=== PATIENT | female | born 1980 | race Hispanic/Latino ===

== ENCOUNTER 2020-04-11 14:22 | Emergency (ER) | payer SELFPAY ==
[2020-04-11 15:48] LABS: Urine Blood 2+ (NEG); Urine Glucose NEGATIVE (NEG); Urine Protein TRACE (NEG); Urine Specific Gravity 1.025 (1.005-1.030); Urine pH 8.5 (5.0-7.0)
--- NOTE | 2020-04-11 16:35 | RAD REPORT ---
EXAM DESCRIPTION: US - Transvaginal OB - 04/11/2020 4:23 pm CLINICAL HISTORY: VAGINAL BLEEDING Pelvic pain COMPARISON: No comparisons FINDINGS: A single gestational sac is seen within the uterus. The shape of the sac is within normal limits for gestational age. Within the sac is a single pole with crown-rump length of 18 mm, co rrelating to estimated gestational age of 8 weeks 0 days. Estimated date of delivery is 11/21/2020. Heart rate is 157 BPM.. The placenta is not yet developed due to early gestational age. Small 10 mm inferiorly located subcho rionic bleed. The maternal adnexa and ovaries are within normal limits. IMPRESSION: Single live early intrauterine gestation with estimated gestational age of 8 weeks 0 day s, MAMIE 11/21/2020. 10 mm inferiorly located subchorionic bleed.
[2020-04-11 16:44] LABS: Absolute Lymphocytes (CBC) 3.1 K/uL (0.7-4.9); Basophils % 0.9 % (0-1.3); Hematocrit 28.1 % (36.0-45.0); Lymphocytes % 32.1 % (15.3-44.8); MPV 8.6 fL (7.6-11.3); RBC Red Blood Cell Count 3.79 M/uL (3.86-4.86)
[2020-04-11 17:19] LABS: BUN Blood Urea Nitrogen 8 mg/dL (7-18); Bicarbonate 22 mmol/L (21-32); Glucose Level 85 mg/dL (74-106); HCG, Quantitative 185494 mIU/mL (1-3); Potassium 3.4 mmol/L (3.5-5.1); Sodium Level 139 mmol/L (136-145)
[2020-04-11] MEDS ORDERED: ONDANSETRON 4 MG/2 ML VIAL ONE (18:11)
[2020-04-11] MEDS ORDERED: NA CHLORIDE 0.9% 1,000 ML ONE (18:11)
--- NOTE | 2020-04-11 18:11 | ER ---
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 + . + N/V. ll1 No fever. Blood oozing down both legs when called into triage. Coronavirus screen: Client denies travel out of the [place] in the last 14 days. At this time, the client does not indicate any symptoms associated with coronavirus-19. Ebola Screen: Patient denies travel to an Ebola-affected area in the 21 days before illness onset. Initial Sepsis Screen: Does the patient meet any 2 criteria? No. Patient's initial sepsis screen is negative. Risk Assessment: Do you want to hurt yourself or someone else? Patient reports no desire to harm self or others. Onset of symptoms was April 11, 2020. 14:41 Method Of Arrival: Ambulatory ll1 14:41 Acuity: RADHA 2 ll1 16:05 Initial Sepsis Screen: Does the patient have a suspected source of infection? No. ph Patient's initial sepsis screen is negative. RECOVERY ADVOCATE: 15:02 6, Full Term 3, 2, Living 3 cp Historical: - Allergies: 14:43 No Known Allergies; ll1 - PSHx: 14:43 ; ll1 - Immunization history:: Flu vaccine status is unknown. - Social history:: Smoking status: Patient denies any tobacco usage or history of. Screenin:50 Abuse screen: Denies threats or abuse. Denies injuries from another. Nutritional ph screening: No deficits noted. Tuberculosis screening: No symptoms or risk factors identified. Fall Risk None identified. Assessment: 15:00 General: Appears in no apparent distress. comfortable, Behavior is calm, cooperative, ph appropriate for age, Denies fever, feeling ill. Pain: Complains of pain in suprapubic area. Neuro: Level of Consciousness is awake, alert, obeys commands, Oriented to person, place, time, situation, Denies weakness dizziness. Cardiovascular: Capillary refill < 3 seconds in bilateral Patient's skin is warm and dry. Respiratory: Airway is patent Respiratory effort is even, unlabored. GI: Reports lower abdominal pain, nausea, vomiting. : Reports cramping, vaginal bleeding that is with clots. Derm: Skin is intact, is healthy with good turgor, Skin is pink, warm \T\ dry. 16:05 Reassessment: Pt remains in US. ph 17:16 Reassessment: Patient appears in no apparent distress at this time. Patient and/or em family updated on plan of care and expected duration. Pain level reassessed. Patient is alert, oriented x 3, equal unlabored respirations, skin warm/dry/pink. 18:11 Reassessment: pt will be D/C'd after completion of IV NS bolus. em 19:12 Reassessment: Patient appears in no apparent distress at this time. Patient and/or jb4 family updated on plan of care and expected duration. Pain level reassessed. Patient is alert, oriented x 3, equal unlabored respirations, skin warm/dry/pink. PT verbalized understanding of d/c and follow up instructions. Denies questions or concerns. Ambulated out of ED with steady gait. Vital Signs: 14:41 BP 109 / 52; Pulse 77; Resp 18; Temp 98.4; Pulse Ox 98% ; Pain 7/10; ll1 16:53 BP 112 / 60; Pulse 71; Resp 18; Pulse Ox 99% on R/A; ph 17:38 BP 96 / 58; Pulse 61; Resp 18; Pulse Ox 99% on R/A; em 19:12 BP 109 / 69; Pulse 54; Resp 16; Pulse Ox 99% on R/A; jb4 ED Course: 14:25 Patient arrived in ED. mr 14:37 Urbano Davenport PA is PHCP. cp 14:37 Carmine Javier MD is Attending Physician. cp 14:42 Triage completed. ll1 14:43 Arm band placed on Patient placed in an exam room, on a stretcher. ll1 14:49 Yessica Cole, RN is Primary Nurse. ph 14:51 Patient has correct armband on for positive identification. Placed in gown. Bed in low ph position. Call light in reach. Side rails up X2. Pulse ox on. NIBP on. Door closed. Noise minimized. Warm blanket given. 15:03 Radiology exam delayed due to lab results not completed at this time. (HCG) aa4 test not completed at this time. 16:15 Inserted saline lock: 20 gauge in left antecubital area, using aseptic technique. Blood ph collected. 16:22 US Transvaginal Ob In Process Unspecified. EDMS 16:54 No provider procedures requiring assistance completed. ph 19:14 IV discontinued, intact, bleeding controlled, No redness/swelling at site. Pressure jb4 dressing applied. Administered Medications: 17:57 CANCELLED (Physician Discretion): NS 0.9% 500 ml IV at bolus once cp 18:03 Drug: Zofran (Ondansetron) 4 mg Route: IVP; Site: left antecubital; em 18:03 Drug: NS 0.9% 1000 ml Route: IV; Rate: 1 bolus; Site: left antecubital; em 18:52 Drug: Potassium Effervescent Tablet 25 mEq Route: PO; ph Outcome: 18:10 Discharge ordered by MD. cp 19:14 Discharged to home ambulatory. jb4 19:14 Condition: stable 19:14 Discharge instructions given to patient, Instructed on discharge instructions, follow up and referral plans. medication usage, Demonstrated understanding of instructions, follow-up care, medications, Prescriptions given X 2. 19:15 Patient left the ED. jb4 Signatures: Dispatcher [employer] [facility] LoyolaSadia Edgar, RN RN Lisa Morin4 Yessica Cole RN Urbano Heller ph, PA PA cp Bryson, James, RN RN jb4 Edis Ennis RN RN ll1
--- NOTE | 2020-04-11 18:11 | EDPHYS ---
Physician Documentation [facility] Name: Anne lAlen Age: 40 yrs Sex: Female : 1980 Arrival Date: 04/11/2020 Time: 14:25 Bed 4 Private MD: ED Physician Cramine Javier HPI: 04/11 15:02 This 40 yrs old Female presents to ER via Ambulatory with complaints of cp Vaginal Bleeding, + Preg <12wks. 15:02 The patient presents to the emergency department with abdominal pain, of the right cp lower quadrant and left lower quadrant, vaginal bleeding, that is moderate, with no clots. The estimated gestational age is 8 weeks. course: care: at a clinic, Ultrasound: the patient has not had an ultrasound. Previous pregnancies: in previous pregnancies patient has had vaginal delivery, no complications. Associated signs and symptoms: Pertinent negatives: dysuria, fever. 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 - Social history:: Smoking status: Patient denies any tobacco usage or history of. ROS: 15:03 Constitutional: Negative for body aches, chills, fever, poor PO intake. cp 15:03 Cardiovascular: Negative for chest pain. 15:03 Respiratory: Negative for cough, shortness of breath, wheezing. 15:03 Abdomen/GI: Positive for abdominal pain, Negative for diarrhea, constipation, active vomiting. 15:03 Back: Negative for pain at rest, pain with movement, radiated pain. 15:03 : Positive for vaginal bleeding, Negative for urinary symptoms. 15:03 Skin: Negative for rash. 15:03 Neuro: Negative for altered mental status, headache, weakness. 15:03 All other systems are negative. Exam: 15:05 Head/Face: Normocephalic, atraumatic. cp 15:05 Constitutional: The patient appears in no acute distress, alert, awake, non-toxic, well developed, well nourished. 15:05 Eyes: Periorbital structures: appear normal, Conjunctiva: normal, no exudate, no injection, Lids and lashes: appear normal, bilaterally. 15:05 ENT: External ear(s): are unremarkable, Nose: is normal, Mouth: Lips: moist, Oral mucosa: moist, Posterior pharynx: Airway: no evidence of obstruction, patent. 15:05 Chest/axilla: Inspection: normal, Palpation: is normal, no crepitus, no tenderness. 15:05 Cardiovascular: Rate: normal, Rhythm: regular. 15:05 Respiratory: the patient does not display signs of respiratory distress, Respirations: cp normal, no use of accessory muscles. 15:05 Abdomen/GI: Inspection: abdomen appears normal, Bowel sounds: active, all quadrants, Palpation: abdomen is soft and non-tender, in all quadrants, rebound tenderness, is not appreciated, voluntary guarding, is not appreciated, involuntary guarding, is not appreciated. 15:05 Back: pain, is absent. Vital Signs: 14:41 BP 109 / 52; Pulse 77; Resp 18; Temp 98.4; Pulse Ox 98% ; Pain 7/10; ll1 16:53 BP 112 / 60; Pulse 71; Resp 18; Pulse Ox 99% on R/A; ph 17:38 BP 96 / 58; Pulse 61; Resp 18; Pulse Ox 99% on R/A; em 19:12 BP 109 / 69; Pulse 54; Resp 16; Pulse Ox 99% on R/A; jb4 MDM: 14:44 Patient medically screened. cp 15:15 Differential diagnosis: STD, threatened Ab, inevitable Ab, complete Ab, ectopic cp . 18:05 Data reviewed: vital signs, nurses notes, lab test result(s), radiologic studies, cp ultrasound. 18:05 Counseling: I had a detailed discussion with the patient and/or guardian regarding: the cp historical points, exam findings, and any diagnostic results supporting the discharge/admit diagnosis, lab results, radiology results, the need for outpatient follow up, an OB/Gyne specialist, to return to the emergency department if symptoms worsen or persist or if there are any questions or concerns that arise at home. Response to treatment: the patient's symptoms have mildly improved after treatment, and as a result, I will discharge patient. 04/11 14:44 Order name: Quantitative Hcg; Complete Time: 17:27 cp 04/11 17:27 Interpretation: HCGQ 521440; Reviewed. 04/11 14:44 Order name: Abo/rh Typing; Complete Time: 17:47 cp 04/11 14:44 Order name: Basic Metabolic Panel; Complete Time: 17:27 cp 04/11 17:28 Interpretation: Normal except: K 3.4; CL 108; CRE 0.53; CA 8.3. cp 04/11 14:44 Order name: CBC with Diff; Complete Time: 17:12 cp 04/11 17:12 Interpretation: Normal except: RBC 3.79; HGB 9.3; HCT 28.1; MCV 74.3; MCH 24.5; RDW cp 17.0. 10 15:20 Order name: Urine Dipstick--Ancillary (enter results); Complete Time: 16:02 bd 04/11 16:02 Interpretation: Normal except: UBLD 2+; UPH 8.5. cp 04/11 15:20 Order name: Urine --Ancillary (enter results); Complete Time: 16:02 bd 04/11 16:02 Interpretation: Reviewed. cp 04/11 14:44 Order name: Urine Test (obtain specimen); Complete Time: 15:17 cp 04/11 14:44 Order name: IV Saline Lock; Complete Time: 16:38 cp 04/11 14:44 Order name: Labs collected and sent; Complete Time: 16:38 cp 04/11 14:49 Order name: US Transvaginal Ob; Complete Time: 16:45 cp 04/11 16:46 Interpretation: Report reviewed. cp 04/11 14:44 Order name: NPO; Complete Time: 16:38 cp 04/11 14:44 Order name: Urine Dipstick-Ancillary (obtain specimen); Complete Time: 15:17 cp Administered Medications: 17:57 CANCELLED (Physician Discretion): NS 0.9% 500 ml IV at bolus once cp 18:03 Drug: Zofran (Ondansetron) 4 mg Route: IVP; Site: left antecubital; em 18:03 Drug: NS 0.9% 1000 ml Route: IV; Rate: 1 bolus; Site: left antecubital; em 18:52 Drug: Potassium Effervescent Tablet 25 mEq Route: PO; ph Disposition: 18:30 Chart complete. cp 04/12 08:04 Co-signature as Attending Physician, Carmine Javier MD. rn Disposition: 04/11/20 18:10 Discharged to Home. Impression: Threatened , Anemia complicating , first trimester. - Condition is Stable. - Discharge Instructions: and Anemia, Threatened Miscarriage, Vaginal Bleeding During , First Trimester, Pelvic Rest. - Prescriptions for Vitamin 27- 0.8 mg Oral Tablet - take 1 tablet by ORAL route once daily; 60 tablet. promethazine 25 mg Oral Tablet - take 1 tablet by ORAL route every 6 hours As needed; 20 tablet. - Medication Reconciliation Form, Thank You Letter, Antibiotic Education, Prescription Opioid Use form. - Follow up: Private Physician; When: 2 - 3 days; Reason: Recheck today's complaints. - Problem is new. - Symptoms have improved. Signatures: Dispatcher [employer] Valdo Collado, RN RN Carmine Henry MD MD rn Hall, Patricia, RN RN ph Page, Corey, PA PA cp Bryson, James, RN RN jb4 Edis Ennis RN RN ll1 Corrections: (The following items were deleted from the chart) 04/11 17:28 17:28 Normal except: K 3.4; CL 108; CRE 0.53. cp cp 17:57 17:57 NS 0.9% 500 ml IV at bolus once ordered. cp cp 19:15 18:10 04/11/2020 18:10 Discharged to Home. Impression: Threatened ; Anemia jb4 complicating , first trimester. Condition is Stable. Forms are Medication Reconciliation Form, Thank You Letter, Antibiotic Education, Prescription Opioid Use. Follow up: Private Physician; When: 2 - 3 days; Reason: Recheck today's complaints. Problem is new. Symptoms have improved. cp
[2020-04-11 21:04] VITALS: TEMP 98.4
[2020-04-11 21:06] VITALS: O2SAT 99
[2020-04-11 21:09] VITALS: BP 109/69
== END 2020-04-11 19:15 | disposition home or self-care (01) ==
LOC: ER 14:22
DX: O20.0 Threatened abortion (principal); O99.011 Anemia complicating pregnancy, first trimester; Z3A.08 8 weeks gestation of pregnancy
CPT/HCPCS: 36415; 76817; 80048; 81003; 81025; 84702; 85025; 86900; 86901; 96374; 99284; J2405; J7030

== ENCOUNTER 2020-07-19 17:25 | Emergency (ER) | payer OTHER, SELFPAY ==
[2020-07-19] MEDS ORDERED: ACETAMINOPHEN 500 MG TAB ONE (18:18)
[2020-07-19 18:35] LABS: Urine Specific Gravity 1.025 (1.005-1.030)
[2020-07-19 18:35] LABS: Urine Blood TRACE (NEG); Urine Glucose NEGATIVE (NEG); Urine Protein 1+ (NEG); Urine Specific Gravity 1.025 (1.005-1.030)
[2020-07-19 19:13] LABS: SARS-COV-2 RT PCR POSITIVE (NEGATIVE)
--- NOTE | 2020-07-19 19:15 | EDPHYS ---
Physician Documentation [facility] Name: Anne Bran Age: 40 yrs Sex: Female : 1980 Arrival Date: 07/19/2020 Time: 17:27 Bed External Waiting Private MD: ED Physician Urbano Rader HPI: 07/19 19:02 This 40 yrs old Female presents to ER via Ambulatory with complaints of kb Headache. 19:02 The patient or guardian reports flu symptoms, myalgias, headache. Onset: The kb symptoms/episode began/occurred this morning. Severity of symptoms: At their worst the symptoms were mild, moderate, in the emergency department the symptoms are unchanged. Modifying factors: The symptoms are alleviated by nothing, the symptoms are aggravated by nothing. Associated signs and symptoms: The patient has no apparent associated signs or symptoms. The patient has not experienced similar symptoms in the past. The patient has not recently seen a physician. 19:03 Pt's 3 children have similar symptoms that started today as well. kb Historical: - Allergies: 17:41 No Known Allergies; ss - Home Meds: 17:41 None [Active]; ss - PMHx: 17:41 None; ss - PSHx: 17:41 ; ss - Immunization history:: Adult Immunizations not up to date. - Social history:: Smoking status: Patient denies any tobacco usage or history of. ROS: 19:01 ENT: Negative for injury, pain, and discharge, Neck: Negative for injury, pain, and kb swelling, Cardiovascular: Negative for chest pain, palpitations, and edema, Respiratory: Negative for shortness of breath, cough, wheezing, and pleuritic chest pain, Abdomen/GI: Negative for abdominal pain, nausea, vomiting, diarrhea, and constipation, Back: Negative for injury and pain, MS/Extremity: Negative for injury and deformity, Skin: Negative for injury, rash, and discoloration. 19:01 Constitutional: Positive for body aches, malaise. 19:01 Neuro: Positive for headache. Exam: 19:01 Constitutional: This is a well developed, well nourished patient who is awake, alert, kb and in no acute distress. Head/Face: Normocephalic, atraumatic. Chest/axilla: Normal chest wall appearance and motion. Nontender with no deformity. No lesions are appreciated. Cardiovascular: Regular rate and rhythm with a normal S1 and S2. No gallops, murmurs, or rubs. Normal PMI, no JVD. No pulse deficits. Respiratory: Lungs have equal breath sounds bilaterally, clear to auscultation and percussion. No rales, rhonchi or wheezes noted. No increased work of breathing, no retractions or nasal flaring. Abdomen/GI: Soft, non-tender, with normal bowel sounds. No distension or tympany. No guarding or rebound. No evidence of tenderness throughout. Skin: Warm, dry with normal turgor. Normal color with no rashes, no lesions, and no evidence of cellulitis. MS/ Extremity: Pulses equal, no cyanosis. Neurovascular intact. Full, normal range of motion. Neuro: Awake and alert, GCS 15, oriented to person, place, time, and situation. Cranial nerves II-XII grossly intact. Motor strength 5/5 in all extremities. Sensory grossly intact. Cerebellar exam normal. Normal gait. Vital Signs: 17:38 BP 106 / 65; Pulse 105; Resp 15; Temp 100.6(TE); Pulse Ox 100% on R/A; Pain 9/10; ss Anamaria Coma Score: 19:02 Eye Response: spontaneous(4). Verbal Response: oriented(5). Motor Response: obeys kb commands(6). Total: 15. MDM: 17:43 Patient medically screened. kb 19:02 Data reviewed: vital signs, nurses notes. Data interpreted: Pulse oximetry: on room air kb is 100 %. Interpretation: normal. 19:03 Counseling: I had a detailed discussion with the patient and/or guardian regarding: the kb historical points, exam findings, and any diagnostic results supporting the discharge/admit diagnosis, lab results, the need for outpatient follow up, a family practitioner, an OB/Gyne specialist, to return to the emergency department if symptoms worsen or persist or if there are any questions or concerns that arise at home. 07/19 18:16 Order name: Urine Dipstick--Ancillary (enter results); Complete Time: 18:37 bd 07/19 18:18 Order name: Urine --Ancillary (enter results); Complete Time: 18:37 bd 07/19 19:13 Order name: COVID-19/FLU A+B; Complete Time: 19:14 EDMS 07/19 18:16 Order name: Urine Dipstick-Ancillary (obtain specimen) kb Administered Medications: 18:07 Drug: Tylenol 1000 mg Route: PO; ss 19:40 Follow up: Response: No adverse reaction ss Disposition: 07/20 06:45 Co-signature as Attending Physician, Urbano Rader MD I agree with the assessment and juany plan of care. Disposition: 07/19/20 19:14 Discharged to Home. Impression: Coronavirus infection, unspecified. - Condition is Stable. - Discharge Instructions: Viral Respiratory Infection, [id number], COVID-19. - Medication Reconciliation Form, Thank You Letter, Antibiotic Education, Prescription Opioid Use form. - Follow up: Emergency Department; When: As needed; Reason: Worsening of condition. Follow up: Private Physician; When: 2 - 3 days; Reason: Recheck today's complaints, Continuance of care, Re-evaluation by your physician. Signatures: Dispatcher [employer] EDTN Clarice Machuca, SOLUTIONS SALES EXECUTIVE-C SOLUTIONS SALES EXECUTIVE-Ckb Urbano Rader MD MD cha Smirch, Shelby, RN RN ss Corrections: (The following items were deleted from the chart) 07/19 18:18 17:45 Influenza Screen (A \T\ B)+BA.LAB.BRZ ordered. EDTN EDTN 18:19 17:45 CORONAVIRUS+MR.LAB.BRZ ordered. [facility] EDMS 19:40 19:14 07/19/2020 19:14 Discharged to Home. Impression: Coronavirus infection, ss unspecified. Condition is Stable. Forms are Medication Reconciliation Form, Thank You Letter, Antibiotic Education, Prescription Opioid Use. Follow up: Emergency Department; When: As needed; Reason: Worsening of condition. Follow up: Private Physician; When: 2 - 3 days; Reason: Recheck today's complaints, Continuance of care, Re-evaluation by your physician. kb
--- NOTE | 2020-07-19 19:15 | ER ---
Nurse's Notes [facility] Name: Anne Bran Age: 40 yrs Sex: Female : 1980 Arrival Date: 07/19/2020 Time: 17:27 Bed External Waiting Private MD: Diagnosis: Coronavirus infection, unspecified Presentation: 07/19 17:38 Chief complaint: Patient states: headache and body aches that began today. Coronavirus ss screen: Client denies travel out of the [place] in the last 14 days. Ebola Screen: Patient denies exposure to infectious person. Patient denies travel to an Ebola-affected area in the 21 days before illness onset. Initial Sepsis Screen: Does the patient meet any 2 criteria? No. Patient's initial sepsis screen is negative. Does the patient have a suspected source of infection? No. Patient's initial sepsis screen is negative. Risk Assessment: Do you want to hurt yourself or someone else? Patient reports no desire to harm self or others. Onset of symptoms was July 19, 2020. 17:38 Method Of Arrival: Ambulatory ss 17:38 Acuity: RADHA 3 ss Historical: - Allergies: 17:41 No Known Allergies; ss - Home Meds: 17:41 None [Active]; ss - PMHx: 17:41 None; ss - PSHx: 17:41 ; ss - Immunization history:: Adult Immunizations not up to date. - Social history:: Smoking status: Patient denies any tobacco usage or history of. Screenin:30 Abuse screen: Denies threats or abuse. Denies injuries from another. Nutritional ss screening: No deficits noted. Tuberculosis screening: Never had TB. Fall Risk None identified. Assessment: 17:30 General: Appears uncomfortable, Behavior is calm, appropriate for age. General: Reports ss feeling ill for. Pain: Complains of pain in top of head Pain currently is 9 out of 10 on a pain scale. Neuro: Level of Consciousness is awake, alert, obeys commands, Oriented to person, place, time, situation. Neuro: Reports headache. Cardiovascular: Capillary refill < 3 seconds is brisk in bilateral fingers. Respiratory: Airway is patent Respiratory effort is even, unlabored, Respiratory pattern is regular, symmetrical. GI: No signs and/or symptoms were reported involving the gastrointestinal system. Derm: Skin is intact, is healthy with good turgor, Skin is dry, Skin is pink, warm \T\ dry. normal. Musculoskeletal: Circulation, motion, and sensation intact. Range of motion: intact in all extremities, Swelling absent. Vital Signs: 17:38 BP 106 / 65; Pulse 105; Resp 15; Temp 100.6(TE); Pulse Ox 100% on R/A; Pain 9/10; ss [place] Coma Score: 19:02 Eye Response: spontaneous(4). Verbal Response: oriented(5). Motor Response: obeys kb commands(6). Total: 15. ED Course: 17:27 Patient arrived in ED. as 17:30 Patient has correct armband on for positive identification. ss 17:40 Triage completed. ss 17:41 Arm band placed on right wrist. ss 17:43 Clarice Machuca FNP-C is [facility]. kb 17:43 Urbano Rader MD is Attending Physician. kb 17:50 COVID swab sent to lab. Flu and/or RSV swab sent to lab. jp3 19:38 No provider procedures requiring assistance completed. Patient did not have IV access ss during this emergency room visit. Administered Medications: 18:07 Drug: Tylenol 1000 mg Route: PO; ss 19:40 Follow up: Response: No adverse reaction ss Outcome: 19:14 Discharge ordered by . kb 19:38 Discharged to home ambulatory, with family. ss 19:38 Condition: good 19:38 Discharge instructions given to patient, family, Instructed on discharge instructions, follow up and referral plans. Demonstrated understanding of instructions, follow-up care, medications. 19:40 Patient left the ED. ss Signatures: Clarice Machuca FNP-C FNP-Ckb Martinez, Amelia as Smirch, Shelby, PALMIRA RN Samuel Pyle jp3
[2020-07-19 19:56] VITALS: BP 106/65; TEMP 100.6; O2SAT 100
== END 2020-07-19 19:40 | disposition home or self-care (01) ==
LOC: ER 17:25
DX: U07.1 COVID-19 (principal)
CPT/HCPCS: 81025; 81003; 0240U; 99283

== ENCOUNTER 2020-11-10 22:15 | Emergency (ER) | payer OTHER ==
[2020-11-11] LABS: Absolute Lymphocytes (CBC) 1.4 K/uL (0.7-4.9); Basophils % 0.8 % (0-1.3); Hematocrit 30.8 % (36.0-45.0); Lymphocytes % 24.6 % (15.3-44.8); MPV 8.1 fL (7.6-11.3); RBC Red Blood Cell Count 3.65 M/uL (3.86-4.86)
[2020-11-11] MEDS ORDERED: NA CHLORIDE 0.9% 1,000 ML ONE (00:02)
[2020-11-11 00:17] LABS: ALT/SGPT 35 U/L (12-78); AST/SGOT 24 U/L (15-37); Albumin 2.6 g/dL (3.4-5.0); Alkaline Phosphatase 159 U/L (45-117); BUN Blood Urea Nitrogen 10 mg/dL (7-18); Bicarbonate 26 mmol/L (21-32); Bilirubin Direct < 0.1 mg/dL (0-0.2); Bilirubin Total 0.3 mg/dL (0.2-1.0); Glucose Level 89 mg/dL (74-106); Lipase 117 U/L (73-393); Potassium 3.8 mmol/L (3.5-5.1); Protein, Total 6.9 g/dL (6.4-8.2); Sodium Level 143 mmol/L (136-145)
[2020-11-11 00:24] LABS: Blood Morphology Comment NOTED (NOT SEEN); Platelet Estimate ADEQ; White Blood Cell Scan OK (OK)
[2020-11-11 00:25] LABS: Anisocytosis 3+; Hypochromasia 1+; Macrocytosis 1+; Ovalocytes 1+
[2020-11-11 00:30] LABS: Urine Blood 3+ (Negative); Urine Glucose Negative (Negative); Urine Protein 3+ (Negative)
[2020-11-11 00:52] LABS: Urine Bacteria 20-50 /HPF (<20); Urine Mucus 2+ /HPF (NONE SEEN); Urine RBC >50 /HPF (NONE SEEN)
[2020-11-11] MEDS ORDERED: CEFTRIAXONE/SWI 1gm 1 GM/10 ML SYR ONE (01:21)
--- NOTE | 2020-11-11 01:47 | EDPHYS ---
Physician Documentation [facility] Name: Anne Bran Age: 40 yrs Sex: Female : 1980 Arrival Date: 11/10/2020 Time: 22:19 Bed 16 Private MD: ED Physician Edwar Sanford HPI: 11/10 23:30 This 40 yrs old Female presents to ER via Ambulatory with complaints of Unable cp to Defecate, Abdominal Pain. 23:30 The patient presents with abdominal pain mid abdomen pain. cp 23:30 Onset: The symptoms/episode began/occurred gradually. The symptoms do not radiate. cp Associated signs and symptoms: Pertinent positives: constipation, patient reports last BM was 8 days ago. 23:30 The symptoms are described as achy. cp 23:30 Patient reports recent vaginal delivery of healthy on 11-04-2020 with no cp complications. Patient reports she has tubal ligation on delivery day with no complications. 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 - Social history:: Smoking status: Patient denies any tobacco usage or history of. ROS: 23:35 Constitutional: Negative for body aches, chills, fever, poor PO intake. cp 23:35 Eyes: Negative for injury, pain, redness, and discharge. cp 23:35 Cardiovascular: Negative for chest pain. 23:35 Respiratory: Negative for cough, shortness of breath, wheezing. 23:35 Abdomen/GI: Positive for abdominal pain, constipation, Negative for nausea, vomiting, diarrhea, anorexia, black/tarry stool, rectal bleeding. 23:35 Back: Negative for pain at rest, pain with movement. 23:35 : Negative for flank pain, vaginal bleeding. 23:35 Neuro: Negative for altered mental status, headache, weakness. 23:35 All other systems are negative. Exam: 23:40 Constitutional: The patient appears in no acute distress, alert, awake, non-toxic, well cp developed, well nourished, uncomfortable. 23:40 Head/Face: Normocephalic, atraumatic. cp 23:40 Eyes: Periorbital structures: appear normal, Conjunctiva: normal, no exudate, no injection, Sclera: no appreciated abnormality, Lids and lashes: appear normal, bilaterally. 23:40 ENT: External ear(s): are unremarkable, Nose: is normal, Mouth: Lips: moist, Oral mucosa: moist, Posterior pharynx: Airway: no evidence of obstruction, patent. 23:40 Chest/axilla: Inspection: normal. 23:40 Cardiovascular: Rate: normal. 23:40 Respiratory: the patient does not display signs of respiratory distress, Respirations: normal, no use of accessory muscles, no retractions, labored breathing, is not present, Breath sounds: are clear throughout, no decreased breath sounds. 23:40 Abdomen/GI: Inspection: abdomen appears normal, Bowel sounds: active, all quadrants, Palpation: soft, in all quadrants, mild abdominal tenderness, in the mid abdomen, rebound tenderness, is not appreciated, involuntary guarding, is not appreciated. 23:40 Back: CVA tenderness, is absent. Vital Signs: 22:54 BP 92 / 69; Pulse 69; Resp 17; Temp 98.8; Pulse Ox 100% on R/A; Weight 58.97 kg; Height ca1 5 ft. 2 in. (157.48 cm); Pain 10/10; 11/11 01:45 BP 100 / 70; Pulse 70; Resp 18; Pulse Ox 99% ; ea 11/10 22:54 Body Mass Index 23.78 (58.97 kg, 157.48 cm) ca1 MDM: 11/10 23:21 Patient medically screened. cp 11/11 00:00 Differential diagnosis: UTI, bowel obstruction, constipation. cp 01:44 Data reviewed: vital signs, nurses notes, lab test result(s), radiologic studies, plain cp films, and as a result, I will discharge patient. Counseling: I had a detailed discussion with the patient and/or guardian regarding: the historical points, exam findings, and any diagnostic results supporting the discharge/admit diagnosis, lab results, radiology results, the need for outpatient follow up, a family practitioner, to return to the emergency department if symptoms worsen or persist or if there are any questions or concerns that arise at home. Response to treatment: the patient's symptoms have mildly improved after treatment, and as a result, I will discharge patient. 11/10 23:27 Order name: Basic Metabolic Panel; Complete Time: 00:53 rr5 11/11 00:54 Interpretation: Normal except: CL 111; CRE 0.36. cp 11/10 23:27 Order name: CBC with Diff; Complete Time: 00:53 rr5 11/11 00:10 Interpretation: Normal except: RBC 3.65; HGB 9.9; HCT 30.8; MCV 84.5; RDW 29.2. cp 11/10 23:27 Order name: Hepatic Function; Complete Time: 00:53 rr5 11/11 01:35 Interpretation: Normal except: ALK 159; ALB 2.6; GLOB 4.3; A/G 0.6. cp 11/10 23:27 Order name: Lipase; Complete Time: 00:53 rr5 11/10 23:39 Order name: Urine Microscopic Only cp 11/10 23:39 Order name: Urine Microscopic Only; Complete Time: 00:53 EDMS 11/11 00:53 Interpretation: UWBC 20-50; URBC >50; UBACT 20-50; SQEPI 5-10. cp 11/11 00:04 Order name: CBC Smear Scan; Complete Time: 00:53 EDMS 11/11 00:12 Order name: XRAY Abdomen With Erect cp 11/11 00:30 Order name: Urine Dipstick-Ancillary; Complete Time: 00:53 EDMS 11/11 00:45 Order name: Urine --Ancillary (enter results); Complete Time: 00:53 tt3 11/11 00:54 Interpretation: URINE PREG POS; Reviewed. cp 11/11 00:53 Order name: Urine Culture EDMS 11/10 23:27 Order name: IV Saline Lock; Complete Time: 23:53 rr5 11/10 23:27 Order name: Labs collected and sent; Complete Time: 23:53 rr5 11/10 23:39 Order name: Urine Dipstick-Ancillary (obtain specimen); Complete Time: 00:33 cp Administered Medications: 11/10 23:53 Drug: NS 0.9% 1000 ml Route: IV; Rate: 1 bolus; Site: left antecubital; ea 11/11 01:00 Follow up: Response: No adverse reaction; IV Status: Completed infusion; IV Intake: ea 1000ml 01:06 Drug: Rocephin (cefTRIAXone) 1 grams Route: IV; Rate: calculated rate; Site: left rr5 antecubital; 01:57 Follow up: Response: No adverse reaction; IV Status: Completed infusion ea 01:47 Drug: Magnesium Citrate Liquid 300 ml Route: PO; ea :57 Follow up: Response: Medication administered at discharge. Disposition: 06:36 Co-signature as Attending Physician, Edwar Sanford MD. 7 Disposition: 11/11/20 01:46 Discharged to Home. Impression: Urinary tract infection, site not specified, Constipation. - Condition is Stable. - Discharge Instructions: Constipation, Adult, Urinary Tract Infection, Adult. - Prescriptions for Macrobid 100 mg Oral Capsule - take 1 capsule by ORAL route every 12 hours for 7 days; 14 capsule. Miralax 17 gram/dose Oral - take 1 packet by ORAL route once daily for 14-21 days dilute powder in 8 ounces of water or juice; 20 packet. - Medication Reconciliation Form, Thank You Letter, Antibiotic Education, Prescription Opioid Use form. - Follow up: Private Physician; When: 1 - 2 days; Reason: Worsening of condition. - Problem is new. - Symptoms have improved. Signatures: Dispatcher [employer] EDMS Urbano Davenport PA PA cp Antunez, Elena, RN RN ea Roque, Raymond, RN RN rr5 Steffi Urbina RN RN ca1 Holmes, Maurice, MD MD 7 Corrections: (The following items were deleted from the chart) 01:56 01:46 11/11/2020 01:46 Discharged to Home. Impression: Urinary tract infection, site ea not specified; Constipation. Condition is Stable. Forms are Medication Reconciliation Form, Thank You Letter, Antibiotic Education, Prescription Opioid Use. Follow up: Private Physician; When: 1 - 2 days; Reason: Worsening of condition. Problem is new. Symptoms have improved. cp
--- NOTE | 2020-11-11 01:47 | ER ---
Nurse's Notes [facility] Name: Anne Bran Age: 40 yrs Sex: Female : 1980 Arrival Date: 11/10/2020 Time: 22:19 Bed 16 Private MD: Diagnosis: Urinary tract infection, site not specified;Constipation Presentation: 11/10 22:52 Chief complaint: Patient states: Unable to have bowel movement for 3 days. has ca1 abdominal pain. Coronavirus screen: Client denies travel out of the [place] in the last 14 days. Ebola Screen: Patient negative for fever greater than or equal to 101.5 degrees Fahrenheit, and additional compatible Ebola Virus Disease symptoms Patient denies exposure to infectious person. Patient denies travel to an Ebola-affected area in the 21 days before illness onset. Initial Sepsis Screen: Does the patient meet any 2 criteria? No. Patient's initial sepsis screen is negative. Does the patient have a suspected source of infection? No. Patient's initial sepsis screen is negative. Risk Assessment: Do you want to hurt yourself or someone else? Patient reports no desire to harm self or others. Onset of symptoms was November 08, 2020. 22:52 Method Of Arrival: Ambulatory ca1 22:52 Acuity: RADHA 3 ca1 22:57 Chief complaint: Patient states: I had a baby 4 days ago and I am . 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 - Social history:: Smoking status: Patient denies any tobacco usage or history of. Screenin:51 Abuse screen: Denies threats or abuse. Denies injuries from another. Nutritional rr5 screening: No deficits noted. Tuberculosis screening: No symptoms or risk factors identified. Fall Risk IV access (20 points). Total Meneses Fall Scale indicates No Risk (0-24 pts). Assessment: 23:10 General: Appears in no apparent distress. uncomfortable, Behavior is calm, cooperative, rr5 appropriate for age. 23:10 Pain: Complains of pain in abdomen Pain Quality of pain is described as aching, Pain rr5 began gradually, Is intermittent. Neuro: Level of Consciousness is awake, alert, obeys commands, Oriented to person, place, time. Cardiovascular: Capillary refill < 3 seconds Patient's skin is warm and dry. Respiratory: Airway is patent Respiratory effort is even, unlabored, Respiratory pattern is regular, symmetrical. GI: Abdomen is round distended, Abdomen is tender to palpation Reports lower abdominal pain, upper abdominal pain, unable to pass stool. : No signs and/or symptoms were reported regarding the genitourinary system. EENT: No signs and/or symptoms were reported regarding the EENT system. Derm: Skin is intact, is healthy with good turgor, Skin temperature is warm. Musculoskeletal: Capillary refill < 3 seconds. 11/11 00:20 Reassessment: Patient appears in no apparent distress at this time. Patient is alert, rr5 oriented x 3, equal unlabored respirations, skin warm/dry/pink. back from CT scan. 01:55 Reassessment: Patient is alert, oriented x 3, equal unlabored respirations, skin ea warm/dry/pink. Discharge instruction given to patient verbalized the understanding of instruction. Pt left ED ambulatory tolerating well. Vital Signs: 11/10 22:54 BP 92 / 69; Pulse 69; Resp 17; Temp 98.8; Pulse Ox 100% on R/A; Weight 58.97 kg; Height ca1 5 ft. 2 in. (157.48 cm); Pain 10/10; 11/11 01:45 BP 100 / 70; Pulse 70; Resp 18; Pulse Ox 99% ; ea 11/10 22:54 Body Mass Index 23.78 (58.97 kg, 157.48 cm) ca1 ED Course: 11/10 22:19 Patient arrived in ED. bp1 22:53 Triage completed. ca1 22:56 Arm band placed on right wrist. ca1 23:07 Angel Medina RN is Primary Nurse. rr5 23:15 Patient has correct armband on for positive identification. Placed in gown. Bed in low rr5 position. Call light in reach. Pulse ox on. NIBP on. 23:19 Urbano Davenport PA is PHCP. cp 23:19 Edwar Sanford MD is Attending Physician. cp 23:55 Inserted saline lock: 20 gauge in left antecubital area, using aseptic technique. Blood ea collected. 11/11 00:33 Urine collected: clean catch specimen, blood tinged. rr5 00:59 XRAY Abdomen With Erect In Process Unspecified. EDMS 01:54 No provider procedures requiring assistance completed. IV discontinued, intact, ea bleeding controlled, No redness/swelling at site. Pressure dressing applied. Administered Medications: 11/10 23:53 Drug: NS 0.9% 1000 ml Route: IV; Rate: 1 bolus; Site: left antecubital; ea 11/11 01:00 Follow up: Response: No adverse reaction; IV Status: Completed infusion; IV Intake: ea 1000ml 01:06 Drug: Rocephin (cefTRIAXone) 1 grams Route: IV; Rate: calculated rate; Site: left rr5 antecubital; 01:57 Follow up: Response: No adverse reaction; IV Status: Completed infusion ea 01:47 Drug: Magnesium Citrate Liquid 300 ml Route: PO; ea 01:57 Follow up: Response: Medication administered at discharge. ea Intake: 01:00 IV: 1000ml; Total: 1000ml. ea Outcome: 01:46 Discharge ordered by MD. cp 01:55 Discharged to home ambulatory, with family. ea 01:55 Condition: stable 01:55 Discharge instructions given to patient, Instructed on discharge instructions, follow up and referral plans. medication usage, Demonstrated understanding of instructions, follow-up care, medications, Prescriptions given X 2. 01:56 Patient left the ED. ea Addendum: 11/14/2020 11:31 Addendum: Culture Results: Positive urine culture. No further action required. Bacteria a a5 sensitive to prescribed antibiotic. Signatures: Dispatcher [employer] EDMS Tina Colon, RN RN aa5 Urbano Davenport PA PA cp Antunez, Elena, RN RN ea Roque, Raymond, RN RN rr5 Steffi Urbina RN Alondra Christensen
[2020-11-11] MEDS ORDERED: MAGNESIUM CITRATE 300 ML BOT ONE (02:04)
[2020-11-11 02:19] VITALS: TEMP 98.8
[2020-11-11 02:21] VITALS: BP 100/70; O2SAT 99
--- NOTE | 2020-11-12 08:51 | RAD REPORT ---
EXAM DESCRIPTION: RAD - Abdomen W Erect - 11/11/2020 12:59 am CLINICAL HISTORY: The patient is 40 years old and is Female; CONSTIPATION TECHNIQUE: Frontal view of the abdomen/pelvis with upright view of the abdomen and one or more addit ional views. COMPARISON: No relevant prior studies available. FINDINGS: Intraperitoneal space: No free air. Gastrointestinal tract: Gaseous distention of the colon. Stool within the right and rectosigmoid colon. Bones/joints: Unremarkable. IMPRESSION: Gaseous distention of the colon. Stool within the right and rectosigmoid colon. Electronically signed by: Esequiel Rubio MD 11/11/2020 1:26 AM CDT Due to temporary technical issues with the PACS/Fluency reporting system, reports are being signed by the in house radiologists without review as a courtesy to insure prompt reporting. The interpreting radiologist is fully responsible for the content of the report.
== END 2020-11-11 01:56 | disposition home or self-care (01) ==
LOC: ER 22:15
DX: N39.0 Urinary tract infection, site not specified (principal)
CPT/HCPCS: 96365; 96361; 87088; 85025; 87086; 80048; 36415; 81025; 80076; 87077; 87186; 83690; 74019; 99284; J0696; 81003; 81015